=== PATIENT | female | born 1970 | race Caucasian/White ===

== ENCOUNTER 2021-07-21 12:20 | Emergency (ER) | payer OTHER ==
[2021-07-21] MEDS ORDERED: NORCO 5-325 TA1 EACH PO (14:29)
== END 2021-07-21 15:13 | disposition home or self-care (01) ==
LOC: FER 12:20
DX: S30.0XXA Contusion of lower back and pelvis, initial encounter (principal); W00.0XXA Fall on same level due to ice and snow, initial encounter; Y92.410 Unspecified street and highway as the place of occurrence of the external cause
CPT/HCPCS: 72131